=== PATIENT | male | born 1975 | race Caucasian/White ===

== ENCOUNTER 2019-11-06 14:49 | Emergency (ER) | payer MEDICAID, SELFPAY ==
[2019-11-06 15:03] VITALS: BP 137/96; PULSE 66; RESP 20; TEMP 36.5; O2SAT 97; BMI 27.1
--- NOTE | 2019-11-06 15:15 | HMH.EDUTC ---
[facility] [place] Disposition Clinical Impression: Sinusitis Qualifiers: Sinusitis location: unspecified location Chronicity: acute Recurrence: non-recurrent Qualified Code(s): J01.90 - Acute sinusitis, unspecified Disposition: Home, Self-Care Condition on Discharge: Good Instructions: Sinusitis, DI for Sinusitis Additional Instructions: Drink plenty of fluids. Take tylenol or ibuprofen for pain or fever. Take the medications as directed. Follow up with your regular doctor. GO TO THE ER FOR ANY WORSENING SYMPTOMS Prescriptions: predniSONE [Prednisone 20mg Tab] 20 mg PO BID 4 Days #8 tab Transmission Status: Received by [id number] Azithromycin [Z-Noman 250mg Tab*] 250 mg PO UD DOSE PK #6 tab Transmission Status: Received by [id number] Referrals: Provider,Referral, [Primary Care Provider] - Time of Disposition: 15:21 Medical Decision Making - Medical Records Medical records reviewed: No: I reviewed the patient's medical records. - Neto Inquiry Pt receiving controlled substance: No Vital Signs: 11/06/19 15:03 11/06/19 15:23 Temperature 97.7 F 97.7 F Temperature Source Oral Pulse Rate 66 Pulse Rate [Right Brachial] 66 Respiratory Rate 20 20 Blood Pressure 137/96 H Blood Pressure [Right Arm] 137/96 H Blood Pressure Mean [Right Arm] 109 Blood Pressure Source [Right Arm] Automatic Cuff Blood Pressure Position [Right Arm] Sitting 02 Sat by Pulse Oximetry 97 Oxygen Delivery Method Room Air [facility] [place] HPI - General Stated complaint: fever allergies Time Seen by Provider: 11/06/19 15:15 Mode of Arrival: Ambulatory Source of Information: Patient Limitations: No Limitations Description of Symptoms (Recalled from Triage Doc. by RN): PATIENT STATES HE WAS WEEDEATING A COUPLE OF DAYS AGO AND HAD AN ALLERGY RESPONSE TO GRASS (FACIAL SWELLING, WATERY EYES, SNEEZING) AND HAS BEEN HAVING A LOW-GRADE FEVER AT HOME OFF AND ON SINCE. HEENT Symptoms (Recalled from RN notes): Yes Resp Symptoms (Recalled from RN notes): No Skin Symptoms (Recalled from RN notes): No MS Symptoms (Recalled from RN notes): No Functional Status (Recalled from RN notes): WNL - History of Present Illness Provider Complaint: He states that he he has had nasal congestion and sinus congestion for the past 2 days. He denies any fever or chills or cough. - Related Data Previous Rx's Medication Instructions Recorded Mupirocin [Bactroban 2% Ointment 1 applicatio TP TID 7 Days #1 tube 03/29/19 22gm tube] Sulfamethoxazole/Trimethoprim 1 each PO BID 10 Days #20 tab 03/29/19 [Bactrim DS tablet] cephALEXin [cephALEXin 500mg 500 mg PO Q6H 10 Days #40 cap 03/29/19 capsule] Azithromycin [Z-Noman 250mg Tab*] 250 mg PO UD DOSE PK #6 tab 11/06/19 predniSONE [Prednisone 20mg 20 mg PO BID 4 Days #8 tab 11/06/19 Tab] Allergies Allergy/AdvReac Type Severity Reaction Status Date / Time Codeine Allergy Unknown Uncoded 03/03/18 19:33 From ULTRAM Allergy Unknown I-RASH Uncoded 03/03/18 19:33 Guaifenesin Allergy Unknown Uncoded 03/03/18 19:33 PCN (penicillin) Allergy Unknown Uncoded 03/03/18 19:33 Penicillin Allergy Unknown Uncoded 03/03/18 19:33 Penicillin V Allergy Unknown Uncoded 03/03/18 19:33 - Worker's Comp Is this a Worker's Comp case?: No [facility] History - Hepatitis A Screen Drug use history?: No High risk sexual behaviors?: No History of sexually transmitted infection?: No Currently employed?: No Childcare worker?: No Do you have indoor plumbing?: Yes Do you have electricity?: Yes Attestation statement:: This patient has been screened for Hepatitis A risk factors. I have reviewed the patient's past medical history: Yes Other Surgeries: Yes: No Previous Surgery - Social History Smoking Status: Never smoker Alcohol Intake: never Occupational Status: other Household Members: family Family Hx:: Cancer ROS Obtained: Yes All systems reviewed & no additional complaints - Co
[2019-11-06 15:23] VITALS: BP 137/96; PULSE 66; RESP 20; TEMP 36.5; O2SAT 97
== END 2019-11-06 15:24 | disposition home or self-care (01) ==
PROVIDERS: Emergency Provider Nurse Practitioner Family
DX: J01.90 Acute sinusitis, unspecified (principal); Z88.0 Allergy status to penicillin; Z88.5 Allergy status to narcotic agent
CPT/HCPCS: 99201

== ENCOUNTER 2020-01-23 13:32 | Emergency (ER) | payer MEDICAID, SELFPAY ==
[2020-01-23 13:44] VITALS: BP 132/91; PULSE 91; RESP 19; TEMP 36.6; O2SAT 99; BMI 27.3
--- NOTE | 2020-01-23 14:38 | HMH.EDUTC ---
[facility] [place] Disposition Clinical Impression: Abscess Disposition: Home, Self-Care Condition on Discharge: Good Instructions: DI for Skin Abscess, DI for Cellulitis -- Adult Additional Instructions: *Start antibiotic(s) immediately and be sure to take as ordered for the FULL length of time although you may be feeling better or start to see improvement in the next 24-48 hours *Monitor closely. Outlined redness so that you can monitor easier. Follow up immediately for new or worsening symptoms including but not limited to redness, swelling, streaking from site fever or chills. *Warm compress 15 minutes 3-4 times day *Never squeeze or pop these on your own. Seek immediate medical attention next time this occurs *Monitor Temp. Tylenol every 4 hours as needed and ibuprofen every 6 hours as needed (as long as your primary care doctor has told you that it is ok to take both. For fever, aches, pain. ER if no less that 101 despite Tylenol and ibuprofen Follow up with your family doctor/primary care physician in the next 48-72 hours if no improvement or any worsening of symptoms Warm compresses with epson salt water may help with draining of abscess Prescriptions: Sulfamethoxazole/Trimethoprim [Bactrim DS tablet] 1 each PO BID 10 Days #20 tab Transmission Status: Pending to [facility] Mupirocin [Bactroban 2% Ointment 22gm tube] 1 applicatio TP TID #1 tube Transmission Status: Pending to [facility] cephALEXin [Keflex 500mg Cap] 500 mg PO Q6H 7 Days #28 cap Transmission Status: Pending to [facility] Referrals: Dago Almaguer MD [Primary Care Provider] - As needed Time of Disposition: 14:45 Medical Decision Making - Neto Inquiry Pt receiving controlled substance: No Neto was queried for this patient: No Vital Signs: 01/23/20 13:44 Temperature 97.8 F Temperature Source Oral Pulse Rate [Radial] 91 H Respiratory Rate 19 Blood Pressure [Right Arm] 132/91 H Blood Pressure Mean [Right Arm] 104 Blood Pressure Source [Right Arm] Automatic Cuff Blood Pressure Position [Right Arm] Sitting 02 Sat by Pulse Oximetry 99 Oxygen Delivery Method Room Air [facility] [place] HPI - General Stated complaint: place on right side Time Seen by Provider: 01/23/20 14:38 Mode of Arrival: Ambulatory Source of Information: Patient Limitations: No Limitations Description of Symptoms (Recalled from Triage Doc. by RN): possible ingrown hair HEENT Symptoms (Recalled from RN notes): No Resp Symptoms (Recalled from RN notes): No Skin Symptoms (Recalled from RN notes): Yes MS Symptoms (Recalled from RN notes): No Functional Status (Recalled from RN notes): wnl - History of Present Illness Provider Complaint: Patient states that he was cleaning out his pool the other day and the water looked dirty and smelled States that after that he noticed what looked like an ingrown hair under his umbilicus area in his belt line States that he has been putting antibitotic ointment on it and it hasnt helped much so he came in to get it checked - Related Data Previous Rx's Medication Instructions Recorded Mupirocin [Bactroban 2% Ointment 1 applicatio TP TID 7 Days #1 tube 03/29/19 22gm tube] Sulfamethoxazole/Trimethoprim 1 each PO BID 10 Days #20 tab 03/29/19 [Bactrim DS tablet] cephALEXin [cephALEXin 500mg 500 mg PO Q6H 10 Days #40 cap 03/29/19 capsule] Azithromycin [Z-Noman 250mg Tab*] 250 mg PO UD DOSE PK #6 tab 11/06/19 predniSONE [Prednisone 20mg 20 mg PO BID 4 Days #8 tab 11/06/19 Tab] Mupirocin [Bactroban 2% Ointment 1 applicatio TP TID #1 tube 01/23/20 22gm tube] Sulfamethoxazole/Trimethoprim 1 each PO BID 10 Days #20 tab 01/23/20 [Bactrim DS tablet] cephALEXin [Keflex 500mg Cap] 500 mg PO Q6H 7 Days #28 cap 01/23/20 Allergies Allergy/AdvReac Type Severity Reaction Status Date / Time Codeine Allergy Unknown Uncoded 03/03/18 19:33 From ULTRAM Allergy Unknown I-RASH Uncoded 03/03/18 19:33 Guaifene
[2020-01-23 14:54] VITALS: BP 132/91; PULSE 91; RESP 19; TEMP 36.6; O2SAT 99
== END 2020-01-23 14:55 | disposition home or self-care (01) ==
PROVIDERS: Emergency Provider Nurse Practitioner; PCP Internal Medicine Adolescent Medicine
DX: L02.211 Cutaneous abscess of abdominal wall (principal); Z88.0 Allergy status to penicillin; Z88.5 Allergy status to narcotic agent
CPT/HCPCS: 99201

== ENCOUNTER 2022-10-07 17:13 | Emergency (ER) | payer MEDICAID, SELFPAY ==
[2022-10-07 17:14] VITALS: BP 151/90; PULSE 82; RESP 16; TEMP 37.3; O2SAT 97; BMI 30.5
--- NOTE | 2022-10-07 17:59 | XR_ITS ---
PROCEDURE INFORMATION: Exam: XR Right Hand Exam date and time: 10/07/2022 5:57 PM Age: 47 years old Clinical indication: Pain; Hand; Right TECHNIQUE: Imaging protocol: Radiologic exam of the right hand. Views: 3 or more views. COMPARISON: No relevant prior studies available. FINDINGS: Bones/joints: Normal. Soft tissues: Normal. IMPRESSION: No acute findings.
--- NOTE | 2022-10-07 18:44 | EXP.UTC ---
Discharge Plan Disposition Patient Disposition: Home, Self-Care Condition: Good Prescriptions Prescriptions: New prednisone [prednisone] 20 mg tablet 20 mg PO BID Qty: 10 0RF diclofenac sodium [Voltaren Arthritis Pain] 1 % gel 2 g topical BID 5 Days Qty: 100 0RF Rx Instructions: apply to hand; No Action cephalexin 500 MG capsule 500 mg PO Q6H 10 Days Qty: 40 0RF sulfamethoxazole-trimethoprim 1 EACH tablet 1 each PO BID 10 Days Qty: 20 0RF mupirocin 22 GM ointment 1 applicatio TP TID 7 Days Qty: 1 0RF azithromycin 250 MG tablet 250 mg PO UD DOSE PK Qty: 6 0RF Rx Instructions: Take two (2) tablets today, then one (1) tablet days #2 thru #5 prednisone 20 MG tablet 20 mg PO BID 4 Days Qty: 8 0RF sulfamethoxazole-trimethoprim 1 EACH tablet 1 each PO BID 10 Days Qty: 20 0RF mupirocin 22 GM ointment 1 applicatio TP TID Qty: 1 0RF Rx Instructions: apply to area three times daily cephalexin 500 MG capsule 500 mg PO Q6H 7 Days Qty: 28 0RF Referrals Follow up/Referrals: Provider,Referral, MD [Primary Care Provider] - See instructions Clinical Impressions Clinical Impression: Arthritis Instructions Patient Instructions: DI for Arthritis Discharge ED Provider: Kati ([facility])Maida [facility] General Stated complaint: right hand pain, no recent accident Mode of Arrival: Ambulatory Source of Information: Patient Limitations: No Limitations Time Seen by Provider: 10/07/22 18:44 Description of Symptoms (Recalled from Triage Doc. by RN): pt c/o R hand pain and swelling. Pt reports had an injury approx 1 month ago, hit with a sledge hammer. Reports any type of vibration to area causes swelling, report difficutly closing his hand in a fist. History of Present Illness Provider Complaint: 47 yr old male presents for c/o RT hand pain and swelling. Pt reports had an injury approx 1 month ago, hit with a sledge hammer. Reports any type of vibration to area causes swelling, report difficulty closing his hand in a fist, due to pain and swelling that started 2 days ago but worse last pm. Treatments prior to arrival: NSAID Related Data Previous Rx's Medication Instructions Recorded cephalexin 500 mg capsule 500 mg PO Q6H 10 days #40 caps 03/29/19 mupirocin 2 % topical ointment 1 applicatio TP TID 7 days #1 tube 03/29/19 sulfamethoxazole 800 1 each PO BID 10 days #20 tabs 03/29/19 mg-trimethoprim 160 mg tablet azithromycin 250 mg tablet 250 mg PO UD DOSE PK #6 tabs 11/06/19 prednisone 20 mg tablet 20 mg PO BID 4 days #8 tabs 11/06/19 cephalexin 500 mg capsule 500 mg PO Q6H 7 days #28 caps 01/23/20 mupirocin 2 % topical ointment 1 applicatio TP TID #1 tube 01/23/20 sulfamethoxazole 800 1 each PO BID 10 days #20 tabs 01/23/20 mg-trimethoprim 160 mg tablet diclofenac sodium 1 % topical gel 2 g topical BID 5 days #100 grams 10/07/22 (Voltaren Arthritis Pain) prednisone 20 mg tablet 20 mg PO BID #10 tabs 10/07/22 Allergies Allergy/AdvReac Type Severity Reaction Status Date / Time Codeine Allergy Unknown Uncoded 03/03/18 19:33 From ULTRAM Allergy Unknown I-RASH Uncoded 03/03/18 19:33 Guaifenesin Allergy Unknown Uncoded 03/03/18 19:33 PCN (penicillin) Allergy Unknown Uncoded 03/03/18 19:33 Penicillin Allergy Unknown Uncoded 03/03/18 19:33 Penicillin V Allergy Unknown Uncoded 03/03/18 19:33 PFSH PFSH Disclaimer: The information contained in this section may have been updated after the patient was seen, as this information can be updated by other users. Social History , [employer] TE[employer]IAN) Smoking Status: Never smoker alcohol intake: never current occupational status: other Travel in the last 8 weeks: None household members: family ROS Obtained: Yes All systems reviewed & no additional complaints except as documented Constitutional Constitutional: Reports system reviewed and no addit
[2022-10-07 19:14] VITALS: BP 151/90; PULSE 82; RESP 16; TEMP 37.3
== END 2022-10-07 19:16 | disposition home or self-care (01) ==
LOC: ER 17:25 → UTC 17:27
PROVIDERS: Emergency Provider Nurse Practitioner Family
DX: M79.641 Pain in right hand (principal); M19.041 Primary osteoarthritis, right hand
CPT/HCPCS: 73130; 96372; 99212; 99214; G0463

== ENCOUNTER 2022-12-06 22:09 | Emergency (ER) | payer MEDICAID, SELFPAY ==
[2022-12-06 22:11] VITALS: BP 141/92; PULSE 94; RESP 16; TEMP 36.8; O2SAT 97; BMI 30.5
[2022-12-06 23:31] VITALS: BP 00/00; PULSE 0; RESP 0; TEMP -17.7; TEMP 0; O2SAT 0
== END 2022-12-06 23:31 | disposition left against medical advice (07) ==
PROVIDERS: Emergency Provider Emergency Medicine
DX: Z53.21 Procedure and treatment not carried out due to patient leaving prior to being seen by health care provider (principal)
CPT/HCPCS: 99211